=== PATIENT | female | born 1940 | race African-American/Black ===

== ENCOUNTER → 2016-11-08 | Outpatient (CLI) | payer MEDICARE, OTHER ==
[~2016-11-08] MED LIST: ADVAIR 250-501 EACH PO; ADVAIR 2501 DISK W/D PO; ALBUTEROL MININEB NEB; ALBUTEROL17 GM INH; ALLERGY RELIEF10 M1 PO; AMITRIPTYLINE H25 MG PO; AMITRIPTYLINE H75 MG PO; AMITRYPTYLINE PO; AZITHROMYCIN250 MG PO; BAYER CHEWABLE81 MG PO; BENADRYL25 M3 PO; BUMETANIDE2 M1 PO; CALCIUM 500 + D1 TAB PO; CIPRO PO; CLARITIN10 M2 PO; CLARITIN10 M3 PO; CLARITIN10 MG PO; COLACE PO; COLACE50 MG PO; COMBIVENT MININEB INH; CYANOCOBALAM1000 MCG PO; DOC-Q-LACE100 MG PO; DOCUSATE SODIU100 MG PO; FLEXERIL PO; FLEXERIL10 MG PO; FOLTX TABLET1 EACH PO; GABAPENTIN400 M2 PO; HCTZ PO; HYDROCHLOROTHIA25 MG PO; HYDROCODON-ACE1 EAC1 PO; HYDROCODON-ACE1 EAC5 PO; K-DUR10 MEQ PO; KETOCONAZOLE CREAM; KLOR-CON SPRIN10 MEQ PO; LASIX PO; LASIX20 MG PO; LEVAQUIN PO; LEVOTHYROXINE100 MC1 PO; LEVOXYL125 MC1 PO; LIPITOR PO; LISINOPRIL10 MG PO; LORTAB 10/500 T1 TAB PO; LORTAB 7.5-5001 TAB PO; METOLAZONE2.5 MG PO; MICRO-K PO; MONTELUKAST SOD10 MG PO; MORPHINE SULFAT30 M3 PO; MORPHINE SULFAT30 M6 PO; NABUMETONE PO; NEURONTIN PO; NEURONTIN600 MG PO; NIZORAL TOP; OMEPRAZOLE20 M1 PO; OMEPRAZOLE20 M2 PO; OXYCODONE HCL10 MG PO; OXYGEN; PERFOROMIS20 MCG/2 M IH; PERFOROMIS20 MCG/2 M INH; PHENERGAN PO; POTASSIUM CHLO10 ME2 PO; POTASSIUM CHLO10 MEQ PO; PRAVACHOL PO; PRAVASTATIN SOD40 MG PO; PREDNISONE PO; PREDNISONE10 MG PO; PREMARIN PO; PREMARIN0.9 MG PO; PRILOSEC20 MG PO; PROAIR HFA8.5 GM IH; PULMICORT0.5 MG/2 M IH; PULMICORT0.5 MG/21 INH; PYRIDIUM PO; Q-DRYL25 M1 PO; REQUIP1 MG PO; REQUIP3 MG PO; ROBITUSSIN15 MG/5 ML PO; ROPINIROLE HCL3 MG PO; SINGULAIR PO; STOOL SOFTENER; SYNTHROID PO; SYNTHROID125 PO; TIZANIDINE HCL4 M1 PO; VITAMIN B-121000 MCG PO; VITAMIN B12 SHOT; VITAMIN B125000 MCG; VITAMIN D; VITAMIN D-32000 UNI1 PO; VITAMIN D1000 UNIT PO; VITAMIN D3400 UNI2 PO; VOLTAREN75 MG PO; ZAROXYLYN PO; ZETIA PO; ZITHROMAX PO; ZITHROMAX1 G/PKT PO
--- NOTE | ~2016-11-08 | CR91 ---
[facility] A Service of [facility] & [facility] RADIOLOGY TEXT RESULTS PATIENT: KELLY MADRID LOCATION: [facility] : 41 UNIT #: [id number] AGE: [address]: Mony Mares MD SEX: F ORDER DR: [id number] [facility] [address]. [place], [place] [address] [id number] O MR#: [id number] Acc #: [id number] NAME: KELLY MADRID. : 1940 SEX: F STUDY DATE/TIME: 11/08/2016 17:37 UNIT: [facility] ROOM: STUDY DESCRIPTION: CR Elbow 2 View Rt Attending Physician: Mony Mares M.D. Referring Physician: Mony Mares M.D. Ordering Physician: Mony Mares M.D. Primary Care Physician: Mony Mares M.D. MEDICAL IMAGING REPORT This report is preliminary unless electronic signature is present EXAM Right elbow 3 views INDICATION 75-year-old female with right elbow pain and swelling for 2 weeks. COMPARISON 08/25/2016. FINDINGS No joint effusion. No fracture or dislocation. Mild degenerative change about the elbow joint. IMPRESSION Mild degenerative change otherwise unremarkable. Dictated by... Ganesh Lopze M.D. THIS IS AN ELECTRONICALLY VERIFIED REPORT Ganesh Lopez M.D. at 11/09/2016 4:27 PM JESSICA/derek TD: 11/09/2016 09:29 JOB #: [id number] MEDICAL IMAGING REPORT Page 1 of 1 COPY
--- NOTE | ~2016-11-08 | CR229 ---
[facility] A Service of [facility] & [facility] RADIOLOGY TEXT RESULTS PATIENT: KELLY MADRID LOCATION: [facility] : 41 UNIT #: [id number] AGE: [address]: Mony Mares MD SEX: F ORDER DR: [id number] [facility] [address]. [place], [place] [address] [id number] O MR#: [id number] Acc #: [id number] NAME: KELLY MADRID. : 1940 SEX: F STUDY DATE/TIME: 11/08/2016 17:36 UNIT: [facility] ROOM: STUDY DESCRIPTION: CR Shoulder Min 2 View Lt Attending Physician: Mony Mares M.D. Referring Physician: Mony Mares M.D. Ordering Physician: Mony Mares M.D. Primary Care Physician: Mony Mares M.D. MEDICAL IMAGING REPORT This report is preliminary unless electronic signature is present EXAM or left shoulder 2 views INDICATIONS 75-year-old female with left shoulder pain for months. No comparisons. FINDINGS There is no fracture or dislocation. There is degenerative change involving the AC and glenohumeral joints. IMPRESSION Degenerative changes as described. Dictated by... Ganesh Lopez M.D. THIS IS AN ELECTRONICALLY VERIFIED REPORT Ganesh Lopez M.D. at 11/09/2016 4:27 PM Ellis TD: 11/09/2016 09:33 JOB #: [id number] MEDICAL IMAGING REPORT Page 1 of 1 COPY
== END | disposition home or self-care (01) ==
LOC: CRAD 17:12
DX: M25.521 Pain in right elbow (principal); M75.82 Other shoulder lesions, left shoulder; M25.421 Effusion, right elbow; M19.021 Primary osteoarthritis, right elbow; M19.012 Primary osteoarthritis, left shoulder
CPT/HCPCS: 73030; 73070

== ENCOUNTER → 2017-01-11 | Outpatient (CLI) | payer MEDICARE, OTHER ==
--- NOTE | ~2017-01-11 | MR113 ---
[facility] A Service of [facility] & [facility] RADIOLOGY TEXT RESULTS PATIENT: KELLY MADRID LOCATION: [facility] : 41 UNIT #: [id number] AGE: [address]: Zay Reynolds MD SEX: F ORDER DR: [id number] [address] [address] [id number] O MR#: [id number] Acc #: [id number] NAME: KELLY MADRID. : 1940 SEX: F STUDY DATE/TIME: 01/11/2017 13:19 UNIT: [facility] ROOM: STUDY DESCRIPTION: MR Lumbar Wo Contrast Attending Physician: Zay Reynolds M.D. Referring Physician: Zay Reynolds M.D. Ordering Physician: Tanesha Caba A.P.R.N. Primary Care Physician: Mony Mares M.D. MRI CENTER REPORT This report is preliminary unless electronic signature is present. EXAM MRI of the lumbar spine without contrast dated 01/11/2017. COMPARISON MRI lumbar spine without contrast dated 02/01/2012. HISTORY Low back pain with bilateral radiculopathy for 2 months. Patient has difficulty walking. FINDINGS Multisequence multiplanar imaging of the lumbar spine was obtained without contrast. Bipedicular screws and stabilization rods are noted from L1-L4. There is loss of disc height at multiple levels particularly at L2-3. It also has associated increased T1 and T2 signal within the disc space. It is stable when compared to the prior study from 5 years ago. No associated edema is seen in the lumbar vertebrae. Within the T12 vertebral body there is a fatty lesion measuring 2.4 x 1.6 x 1.9 cm. It is in the mid to left paramidline aspect of the T12 vertebral body. It has some associated edema and is probably an atypical hemangioma, stable predominantly in the last 5 years. Disc osteophyte complex are also noted in the visualized lower thoracic spine from T10-11 to T12-L1 levels. Conus terminates at L1. Signal of conus and cauda equina are within normal limits. Posterior column demonstrates deformities in the lower lumbar spine from the level of the L4 to S1 with postoperative change. It is noted to a lesser degree in the remaining lumbar levels. Correlate with prior operative note. Stable in the last 5 years. There is a 1 cm increased T2-signal lesion is noted in the posterior mid to inferior left kidney. It is probably a benign lesion like a cyst. Motion artifact is noted in multiple images limiting evaluation. An attempt has been made to characterize. [facility] A Service of [facility] RADIOLOGY TEXT RESULTS PATIENT: KELLY MADRID LOCATION: [facility] : 41 UNIT #: [id number] AGE: [address]: Zay Reynolds MD SEX: F ORDER DR: T10-11: Disc osteophyte complex with bilateral facet hypertrophic changes. There is moderate canal stenosis and moderate bilateral neural foraminal narrowing. T11-12: Disc osteophyte complex with severe bilateral facet hypertrophic changes. Ybza-we-xopysivc canal stenosis is seen with mild bilateral neural foraminal narrowing. T12-L1: Disc osteophyte complex with loci-oi-rnnqojec bilateral facet hypertrophic changes. There is probably superimposed wbaxf-mu-blrm central protrusion with moderate canal stenosis and mild bilateral neural foraminal narrowing. Based on the sagittal images, the above-mentioned degenerative changes in the lower thoracic spine are stable. Axials were not obtained in all these levels in the prior study. L1-2: Mild disc bulge without canal stenosis or neural foraminal narrowing. Suspicious tiny left central protrusion. L2-3 to L4-5: Stable postoperative changes without any significant canal stenosis, disc herniation or neural foraminal narrowing. L5-S1: Disc osteophyte complex with mild inferior bilateral neural foraminal encroachment. No canal stenosis. IMPRESSION 1. Postoperative changes with hardware are noted from L1-L4 as described above, predominantly stable. 2. Degenerative changes noted at various other levels, and the postoperative changes at the postoperative levels appear to be relatively stable since prior study from 02/01/2012, after giving allowances to differences in slice selection. Dictated by... Leticia Cyr M.D. THIS IS AN ELECTRONICALLY VERIFIED REPORT Leticia Cyr M.D. at 01/17/2017 10:36 AM CPR/ea TD: 01/12/2017 22:32 JOB #: [id number] MRI CENTER REPORT Page 1 of 1
== END | disposition home or self-care (01) ==
LOC: SMRI 13:00
DX: M54.30 Sciatica, unspecified side (principal); M47.896 Other spondylosis, lumbar region; Z98.890 Other specified postprocedural states
CPT/HCPCS: 72148

== ENCOUNTER 2017-04-08 03:16 | Inpatient (IN) | payer OTHER ==
[~2017-04-08] VITALS: Ht 157.5 cm; Wt 115.2 kg
--- NOTE | ~2017-04-08 | HP ---
Unit #: [id number] #: [id number] Patient: KELLY MADRID [id number] [address] [address] [id number] I MR#: [id number] NAME: KELLY MADRID. ROOM: 324 Age: 76 Sex: F Admission Date: 04/08/2017 : 1940 Attending Physician: Lito Lamar M.D. Primary Care Physician: Mony Mares M.D. HISTORY AND PHYSICAL CHIEF COMPLAINT Bilateral foot pain and swelling with blisters. HISTORY OF PRESENT ILLNESS The patient is a 76-year-old female with a history of a COPD on home oxygen 4 L, obstructive sleep apnea, hypertension and chronic pain, presented to the emergency room with the leg swelling. The patient stated the patient has been having worsening bilateral lower extremity edema associated with the swelling and tenderness for the last one week. The patient denies any trauma. The patient stated that the patient is noticing blisters, fluid filled, with leg edema, denies any shortness of breath or any productive cough. The patient is being admitted for the above reason and concerning for cellulitis. The patient's potassium was found to be 2.6. PAST MEDICAL HISTORY History of an obstructive sleep apnea, COPD on 4 L of oxygen and gout, hyperlipidemia, chronic pain. PAST SURGICAL HISTORY History of status post multiple back surgeries and appendectomy, hysterectomy, bilateral carpal tunnel disease, cholecystectomy, bilateral total knee replacement, right shoulder surgery and thyroidectomy. ALLERGIES Ammon and latex. HOME MEDICATION Patient is on Singulair, pravastatin, potassium, Colace, omeprazole, vitamin, tizanidine, Requip, diclofenac, gabapentin and loratadine, Synthroid, metolazone, Lasix and aspirin. FAMILY HISTORY Positive for COPD, diabetes and hypertension. SOCIAL HISTORY The patient lives with her daughter, stopped smoking two years ago, seldom drinks alcohol. REVIEW OF SYSTEMS Positive for leg swelling and positive for the edema and the tenderness. Denies any shortness of breath. Denies any chest pain. Denies any productive cough and all other systems have been reviewed and none. Unit #: [id number] #: [id number] Patient: KELLY MADRID PHYSICAL EXAMINATION GENERAL APPEARANCE: On examination the patient is lying on a bed, not in acute distress. HEENT: Head atraumatic and normocephalic. Pupils equal, round and reacting to light and accommodation. Extraocular movements are intact. NECK: Supple. LUNGS: Decreased air entry at the bases. HEART: Regular rate and rhythm. ABDOMEN: Soft, positive bowel sounds. EXTREMITIES: Positive for pedal edema. Positive for blisters. NEUROLOGIC: Awake, alert, oriented. No gross focal motor deficits. PSYCHIATRIC: Mood and affect are appropriate. DIAGNOSTIC STUDIES LABORATORY DATA: Troponin less than 0.05, sodium 139, potassium 2.6, chloride 90, bicarb 36, glucose 118, BUN 29, creatinine 1.4, AST 23, ALT 20, alkaline phosphatase 107, albumin 3.7, WBC 8.6, hemoglobin 12.5, hematocrit 38.7, platelets 278, BNP is 25. CARDIOVASACULAR: The EKG shows sinus tachycardia at a rate of 103 beats per minute. ASSESSMENT 1. Leg edema, likely secondary to venous stasis. 2. Questionable cellulitis. 3. Chronic obstructive pulmonary disease, on home oxygen. 4. Hypokalemia. PLAN Plan to admit the patient to the inpatient with the telemetry. Continue with the diuretics and change the diuretics to the IV and continue with the empiric antibiotics for 24 hours and then discontinue it and then continue with the wound care and daily weight and replace the potassium per protocol and further recommendations will follow. Dictated by Callum Perez/gricel TD: 04/08/2017 18:54 JOB #: [id number] HISTORY AND PHYSICAL Page 1 of 1 X LITO LAMAR MD X HISTORY AND PHYSICAL
--- NOTE | ~2017-04-08 | US84 ---
[id number] [facility]. [facility] [address] [facility]. [place], [place] [address] [id number] MR#: [id number] Acc #: [id number] NAME: KELLY MADRID : 1940 SEX: F STUDY DATE/TIME: 04/09/2017 11:08 UNIT: C3A PCU ROOM: 324 STUDY DESCRIPTION: US LE Veins Complete Anupam Stdy Attending Physician: Nii Otero M.D. Ordering Physician: Nii Otero M.D. Primary Care Physician: Mony Mares M.D. MEDICAL IMAGING REPORT This report is preliminary unless electronic signature is present EXAM Bilateral lower extremity venous duplex HISTORY Bilateral lower extremity pain and swelling for 2 days. Recent fall on the right side. FINDINGS Duplex imaging of the lower extremities was performed. The right and left femoral popliteal, tibial and peroneal veins are patent and compressible with normal venous filling in all of the visualized veins. No evidence of DVT is seen. IMPRESSION No evidence of DVT is seen in the right or left lower extremities. Dictated by... Polo Christensen M.D. THIS IS AN ELECTRONICALLY VERIFIED REPORT Polo Christensen M.D. at 04/12/2017 9:59 AM Benedict TD: 04/10/2017 21:38 JOB #: [id number] MEDICAL IMAGING REPORT Page 1 of 1 COPY
--- NOTE | ~2017-04-08 | DS ---
Unit #: [id number] #: [id number] Patient: KELLY MADRID [id number] [address] [place], [place] [address] [id number] I MR#: [id number] NAME: KELLY MADRID. ROOM: 324 Age: 76 Sex: F Admission Date: 04/08/2017 : 1940 Discharge Date: 04/10/2017 Attending Physician: Nii Otero M.D. Primary Care Physician: Mony Mares M.D. DISCHARGE SUMMARY REASON FOR ADMISSION Bilateral foot pain, lower extremity edema. HISTORY OF PRESENT ILLNESS/HOSPITAL COURSE The patient is a 76-year-old female with longstanding history of COPD (end stage) on home O2, obstructive sleep apnea, hypertension, morbid obesity, chronic pain syndrome who presented secondary to lower extremity edema and/or swelling. She states she had a blister formation as well as fluid-fill formation with active drainage. She was also noted to have a potassium level of 2.6 and thus was admitted for the same. Initial admission diagnosis was consistent with lower extremity cellulitis and/or possible lower extremity edema in regard to the same. Blood cultures were ascertained through this hospital stay which have not yielded any acute bacterial growth. Consultation was placed to [facility] as the patient had seen Dr. Mckeon [facility] the [facility]. No acute intervention was performed while patient was here. They did recommend topical Bactroban, betamethasone, as well as, an Aquaphor mix b.i.d. This was administered while patient was here. Fitting for compression stockings 15-20 mmHg knee high bilateral was also recommended. At this point in time, patient has been instructed to followup at the wound care office at [facility] with Dr. Mckeon for ongoing care. There does not appear to be an acute infectious process. Secondary to patient's marked discomfort and calf tenderness on initial exam, she did undergo a bilateral lower extremity Doppler ultrasound which was negative for acute DVT. It seems likely that some of her discomfort is secondary to hypokalemia as well as peripheral neuropathy. Secondary to lower extremity edema, patient underwent 2D echocardiogram which showed ejection fraction 60% to 65%, grade 1 diastolic dysfunction, moderate asymmetric left ventricular hypertrophy. This was read by Dr. Carson. At this point in time, patient is clinically stable for discharge. She did have some hematuria, I believe, secondary to a traumatic Platt insertion. At this point in time, Platt catheter will be removed. If her urine is clear, she will be discharged home. At time of discharge, her medications have been adjusted. Please see below for complete details. Please note, patient's final urine culture was negative. At time of discharge, hemoglobin is 13.3. BMP shows a creatinine of 1.2, GFR 51, and potassium is 2.7 but she will be given 80 mEq of potassium Unit #: [id number] #: [id number] Patient: KELLY MADRID prior to discharge. On April 12, 2017 in approximately two days, patient will have a repeat BMP and CBC either by her PCP or [facility] services. All plans have been reviewed with patient. She expressed understanding and agreement. FINAL DISCHARGE DIAGNOSES 1. Bilateral lower extremity edema, likely chronic venous stasis. 2. Severe morbid obesity. 3. End-stage chronic obstructive pulmonary disease. 4. Obstructive sleep apnea. 5. Likely Pickwickian syndrome. 6. Hypertension. 7. Chronic pain syndrome. 8. Likely peripheral neuropathy. 9. Hypokalemia. 10. Hyperlipidemia. 11. Gout. 12. Chronic pain syndrome. 13. Osteoarthritis. FINAL DISCHARGE MEDICATIONS 1. Neurontin 400 mg p.o. daily. 2. Requip 3 mg p.o. q.8. 3. Colace 100 mg p.o. daily. 4. Lasix 20 mg p.o. b.i.d. 5. Zaroxolyn 2.5 mg p.o. q. week. 6. Pravastatin 40 mg p.o. daily. 7. Singulair 10 mg p.o. nightly. 8. Aspirin 81 mg p.o. daily. 9. Omeprazole 20 mg p.o. daily. 10. Potassium chloride 20 mEq p.o. b.i.d. x3 days then one tablet p.o. daily new prescription given. 11. Zanaflex 4 mg p.o. q.8 p.r.n. 12. Synthroid 150 mcg p.o. daily. 13. Vitamin B12 tablets one daily. DISCHARGE CONDITION Stable. DISCHARGE DISPOSITION Home. FOLLOWUP Followup as outlined above. Dictated by... Callum Padilla TD: 04/12/2017 10:37 JOB #: [id number] Unit #: [id number] #: [id number] Patient: KELLY MADRID DISCHARGE SUMMARY Page 1 of 1 X Nii Otero MD X DISCHARGE SUMMARY
--- NOTE | ~2017-04-08 | BMI ---
[facility] Nutrition Therapy DATE: 04/10/17 Patient: KELLY MADRID Physician: SABINA Address: [address] [place] [address] Room/Bed: [address] [place] [address], Zip: [place] [address] Admit Date: 04/08/17 Date of : 42 Height: 5 2 Weight: 253 115.2 HIGH BMI NOTE: DX: BLE CELLULITIS ANTHROPOMETRICS: HT: 62", WT: 253#, BMI: 46.3 DIET: HEART HEALTHY RECOMMENDATIONS: CONTINUE HEART HEALTHY DIET TO PROMOTE A STEADY WEIGHT LOSS TOWARDS A HEALTHY BMI OF 19-25 Respectfully, STEVE JIMENEZ RD, LD [employer] and Nutrition[facility] Services [facility] cc: client file
--- NOTE | ~2017-04-08 | CR72 ---
[facility] A Service of [facility] & [facility] RADIOLOGY TEXT RESULTS PATIENT: KELLY MADRID LOCATION: [facility] 324-01 : 41 UNIT #: [id number] AGE: [address]: LITO LAMAR MD SEX: F ORDER DR: [id number] [facility] [address] [place], [place] [address] [id number] I MR#: [id number] #: [id number] NAME: KELLY MADRID. : 1940 SEX: F STUDY DATE/TIME: 04/08/2017 4:58 UNIT: [address] ROOM: [facility] STUDY DESCRIPTION: CR Chest Single View Portable Attending Physician: Lito Lamar M.D. Ordering Physician: Roselyn Pacheco M.D. Primary Care Physician: Mony Mares M.D. MEDICAL IMAGING REPORT This report is preliminary unless electronic signature is present EXAM Portable chest HISTORY Shortness of air and cough for 2 days. FINDINGS The cardiac size and pulmonary vascularity are normal. No infiltrates or effusions. Surgical clips at the neck base. IMPRESSION No acute findings Dictated by... Bertin Cuenca M.D. THIS IS AN ELECTRONICALLY VERIFIED REPORT Bertin Cuenca M.D. at 04/09/2017 6:33 AM CARLTONL/cassandra TD: 04/09/2017 05:52 JOB #: [id number] MEDICAL IMAGING REPORT Page 1 of 1 COPY
--- NOTE | ~2017-04-08 | CO ---
Unit #: [id number] #: [id number] Patient: KELLY GARG [id number] [address] [address] [id number] MR#: [id number] NAME: KELLY GARG. ROOM: 324 Age: 76 Sex: F Admission Date: 04/08/2017 : 1940 Attending Physician: Nii Otero M.D. Primary Care Physician: Mony Mares M.D. Consultation Date: 04/10/2017 CONSULTATION REPORT REASON FOR CONSULTATION Venous stasis disease. Thank you very much for asking us to see Ms. Garg. HISTORY OF PRESENT ILLNESS She is a 76-year-old white female with a history of COPD, sleep apnea, and hypertension, who presented with swelling of her legs. The patient has been having worsening lower extremity swelling over the last week or so. This happens intermittently. She denies any shortness of breath. She was seen and evaluated by the [facility] physicians and started on antibiotics, elevation, and diuresis. We were asked to see her at this time for further evaluation and treatment. PAST MEDICAL HISTORY Sleep apnea, COPD, hyperlipidemia, chronic pain. PAST SURGICAL HISTORY Multiple back surgeries, appendectomy, hysterectomy, cholecystectomy, bilateral total knee replacement, right shoulder surgery, thyroidectomy, bilateral carpal tunnel release. ALLERGIES Latex. MEDICATIONS Please see med rec sheet. FAMILY HISTORY COPD, diabetes, hypertension. SOCIAL HISTORY No tobacco use. Rare alcohol use. REVIEW OF SYSTEMS Negative except for above. IMMUNIZATION STATUS Unknown. PHYSICAL EXAMINATION GENERAL: Well-developed white female, in no apparent distress. VITAL SIGNS: Temperature is 99.1, pulse 88, respirations 17, blood Unit #: [id number] #: [id number] Patient: KELLY GARG pressure 116/61. GENERAL: Awake, alert, and oriented x3. Sclerae not icteric. Extraocular movements are intact. BACK: No CVA or spinous tenderness. ABDOMEN: Soft and nontender. EXTREMITIES: Examination of her lower extremities revealed some mild bilateral cellulitis and some changes bilaterally of mild venous stasis disease, but no open ulcerations. The patient's left leg shows evidence of decreased edema. Palpable DP bilaterally. DIAGNOSTIC STUDIES LABORATORY RESULTS: Reveal the patient to have a CMP that shows a glucose of 133, potassium 2.7, chloride 80, CO2 47. White count is 7.8 with hemoglobin 13.3, hematocrit of 40.8, and platelet count 274,000. IMPRESSION A 76-year-old black female with bilateral venous stasis disease, cellulitis, and edema. She was seen at the same time was myself with Dr. Mckeon, charge master specialist. He has recommended elevation of legs at all time, she needs to be fit for compression stockings with 15 to 20 mm of pressure knee high bilaterally. He has recommended topical Bactroban, betamethasone, and Aquaphor to apply the legs b.i.d. We will follow the patient with you. Dictated by... Callum Devi/josefina TD: 04/10/2017 11:40 JOB #: [id number] CC: [facility] CONSULTATION REPORT Page 1 of 1 X Babatunde Nixon MD X CONSULTATION REPORT
--- NOTE | ~2017-04-08 | EKG ---
PATIENT: KELLY MADRID UNIT #: [id number] Ventricular Rate: 103 BPM Atrial Rate: 103 BPM P-R Interval: 194 ms QRS Duration: 98 ms Q-T Interval: 376 ms QTC Calculation(Bezet): 492 ms P Rimforest: 69 degrees Calculated R Rimforest: 11 degrees Calculated T Rimforest: 57 degrees Diagnosis Line: Sinus tachycardia Diagnosis Line: Otherwise normal ECG Diagnosis Line: No previous ECGs available Diagnosis Line: Confirmed by STEPHEN GABRIEL MD ([id number]) on Diagnosis Line: 04/10/2017 4:44:02 PM INTERPRETING MD: JANEE
[~2017-04-08 03:16] MED LIST changes: -GABAPENTIN400 M2 PO; -LASIX20 MG PO; -OMEPRAZOLE20 M2 PO; -ROPINIROLE HCL3 MG PO; -VITAMIN B125000 MCG; -ZAROXYLYN PO
[2017-04-08 05:40] LABS: POC - CKMB 4.2 ng/mL (0.0-7.9); POC - TROPONIN <0.05 ng/mL (<=0.05)
[2017-04-08 05:46] LABS: BASOPHIL# 0.1 X10e3 (0-0.3); BASOPHIL% 0.7 % (0-2.5); DIFF IND YES; EOSINOPHIL# 0.4 X10e3 (0-0.7); HEMATOCRIT 38.7 % (35.0-45.0); HEMOGLOBIN 12.5 gm/dL (12.0-16.0); LYMPHOCYTE# 2.4 X10e3 (1.0-3.5); LYMPHOCYTE% 27.6 % (17.0-45.0); MEAN CELL VOLUME 91.4 FL (83-96); MEAN CORPUSCULAR HEMOGLOBIN 29.7 PG (28-34); MEAN CORPUSCULAR HGB CONC 32.4 g/dL (30-36); MEAN PLATELET VOLUME 7.3 FL (6.5-11.5); MONOCYTE# 0.6 X10e3 (0-1.0); MONOCYTE% 7.4 % (3.0-12.0); NEUTROPHIL# 5.1 X10e3 (1.5-7.1); NEUTROPHIL% 59.3 % (40-75); PLATELET COUNT 278 X10e3 (140-420); RED BLOOD COUNT 4.23 X10e (3.90-5.30); RED CELL DISTRIBUTION WIDTH 15.6 % (11.0-15.5); WHITE BLOOD COUNT 8.6 X10e3 (4.0-10.5)
[2017-04-08 06:09] LABS: ALBUMIN SERUM 3.7 g/dL (3.5-5.0); BILIRUBIN, DIRECT 0.1 mg/dL (0.0-0.2); BILIRUBIN,INDIRECT 0.5 mg/dL (0.0-0.9); BILIRUBIN,TOTAL 0.6 mg/dL (0.2-2.0); BUN/CREATININE RATIO 20.71; CALCIUM SERUM 9.7 mg/dL (8.4-10.2); CREATININE SERUM 1.4 mg/dL (0.6-1.4); GLOM FILT RATE Estimated 42.5 mL/min (>60); PROTEIN TOTAL SERUM 6.8 g/dL (6.0-8.3)
[2017-04-08 06:11] LABS: POTASSIUM 2.6 mmol/L (3.5-5.1)
[2017-04-08 06:32] LABS: NUCLEATED RED BLOOD CELL 1 /100 (0)
[2017-04-08 06:33] LABS: PLATELET ESTIMATE NORMAL (NORMAL); STOMATOCYTE PRESENT; VACUOLIZATION SL
[2017-04-08] MEDS ORDERED: MONTELUKAST SOD10 MG PO (10:45)
[2017-04-08] MEDS ORDERED: POTASSIUM CHLO10 MEQ PO (10:45)
[2017-04-08] MEDS ORDERED: DOC-Q-LACE100 MG PO (10:45)
[2017-04-08] MEDS ORDERED: PRAVASTATIN SOD40 MG PO (10:45)
[2017-04-08] MEDS ORDERED: OMEPRAZOLE20 M2 PO (10:46)
[2017-04-08] MEDS ORDERED: ALLERGY RELIEF10 M1 PO (10:46)
[2017-04-08] MEDS ORDERED: SYNTHROID PO (10:47)
[2017-04-08] MEDS ORDERED: ZAROXYLYN PO (10:48)
[2017-04-08] MEDS ORDERED: LASIX20 MG PO (10:48)
[2017-04-08] MEDS ORDERED: BAYER CHEWABLE81 MG PO (10:49)
[2017-04-08] MEDS ORDERED: VITAMIN B125000 MCG (10:49)
[2017-04-08] MEDS ORDERED: ROPINIROLE HCL3 MG PO (10:50)
[2017-04-08] MEDS ORDERED: TIZANIDINE HCL4 M1 PO (10:50)
[2017-04-08] MEDS ORDERED: VOLTAREN75 MG PO (10:51)
[2017-04-08] MEDS ORDERED: GABAPENTIN400 M2 PO (10:52)
[2017-04-09 06:14] LABS: HEMATOCRIT 40.1 % (35.0-45.0); HEMOGLOBIN 13.2 gm/dL (12.0-16.0); MEAN CELL VOLUME 91.8 FL (83-96); MEAN CORPUSCULAR HEMOGLOBIN 30.1 PG (28-34); MEAN CORPUSCULAR HGB CONC 32.8 g/dL (30-36); MEAN PLATELET VOLUME 6.8 FL (6.5-11.5); RED BLOOD COUNT 4.37 X10e (3.90-5.30); RED CELL DISTRIBUTION WIDTH 15.8 % (11.0-15.5); WHITE BLOOD COUNT 5.6 X10e3 (4.0-10.5)
[2017-04-09 06:36] LABS: BUN/CREATININE RATIO 18.18; CALCIUM SERUM 9.5 mg/dL (8.4-10.2); CREATININE SERUM 1.1 mg/dL (0.6-1.4); GLOM FILT RATE Estimated 56.9 mL/min (>60)
[2017-04-09 06:48] LABS: POTASSIUM 2.8 mmol/L (3.5-5.1)
[2017-04-09 18:05] LABS: URINE APPEARANCE CLOUDY; URINE BILIRUBIN NEG (NEG); URINE BLOOD 3+ (NEG); URINE COLOR ORANGE; URINE GLUCOSE NEG (NEG); URINE KETONE NEG (NEG); URINE LEUKOCYTE ESTERASE 1+ (NEG); URINE NITRATE NEG (NEG); URINE PROTEIN 1+ (NEG); URINE SPECIFIC GRAVITY 1.014 (1.003-1.035); URINE UROBILINOGEN 0.2 MG/DL (NEG)
[2017-04-09 18:08] LABS: URBCS1 AUWI 200-300 /[HPF] (0-2); URINE BACTERIA AUWI NEG (NEGATIVE); URINE SQUAMOUS EPITHELIAL CELL NONE SEEN /[HPF]
[2017-04-10 05:13] LABS: HEMATOCRIT 40.8 % (35.0-45.0); HEMOGLOBIN 13.3 gm/dL (12.0-16.0); MEAN CELL VOLUME 92.4 FL (83-96); MEAN CORPUSCULAR HEMOGLOBIN 30.2 PG (28-34); MEAN CORPUSCULAR HGB CONC 32.7 g/dL (30-36); MEAN PLATELET VOLUME 6.6 FL (6.5-11.5); RED BLOOD COUNT 4.41 X10e (3.90-5.30); RED CELL DISTRIBUTION WIDTH 15.7 % (11.0-15.5); WHITE BLOOD COUNT 7.8 X10e3 (4.0-10.5)
[2017-04-10 06:00] LABS: BUN/CREATININE RATIO 15.83; CALCIUM SERUM 9.4 mg/dL (8.4-10.2); CREATININE SERUM 1.2 mg/dL (0.6-1.4); GLOM FILT RATE Estimated 51.2 mL/min (>60)
[2017-04-10 06:01] LABS: POTASSIUM 2.7 mmol/L (3.5-5.1)
== END 2017-04-10 19:09 | disposition home health service (06) | DRG 603 ==
LOC: CED 03:16 → CEDOF 09:17 → C3A PCU 09:17 → CED 09:17 → CEDOF 09:58 → CED 09:58 → C3A PCU 12:35 → CEDOF 12:35 → C3A PCU 04-09 06:48
PROVIDERS: Emergency Medicine; Family Medicine; Internal Medicine
PROC: B24BYZZ Ultrasonography of Heart with Aorta using Other Contrast (ICD-10-PCS; principal; 2017-04-10)
DX: L03.115 Cellulitis of right lower limb (principal); Z99.81 Dependence on supplemental oxygen; E66.2 Morbid (severe) obesity with alveolar hypoventilation; G62.9 Polyneuropathy, unspecified; Z68.42 Body mass index [BMI] 45.0-49.9, adult; T83.83XA Hemorrhage due to genitourinary prosthetic devices, implants and grafts, initial encounter; I87.8 Other specified disorders of veins; L03.116 Cellulitis of left lower limb; J44.9 Chronic obstructive pulmonary disease, unspecified; G47.33 Obstructive sleep apnea (adult) (pediatric); E78.5 Hyperlipidemia, unspecified; Z90.49 Acquired absence of other specified parts of digestive tract; Z96.653 Presence of artificial knee joint, bilateral; Z91.040 Latex allergy status; Z79.82 Long term (current) use of aspirin; E87.6 Hypokalemia; G89.4 Chronic pain syndrome; E66.01 Morbid (severe) obesity due to excess calories; Y73.8 Miscellaneous gastroenterology and urology devices associated with adverse incidents, not elsewhere classified; R31.9 Hematuria, unspecified; M10.9 Gout, unspecified; M19.90 Unspecified osteoarthritis, unspecified site
CPT/HCPCS: 36415; 71010; 80048; 80076; 81003; 82553; 82947; 83735; 83880; 84484; 85025; 85027; 87040; 87086; 93005; 93306; 93970; 94760; 96365; 96375; 99285; J0295; J0696; J1815; J1940; J2270; J2405; J3370